=== PATIENT | male | born 1995 | race Caucasian/White ===

== ENCOUNTER 2025-06-04 08:24 | Emergency (ER) | payer OTHER, SELFPAY ==
[2025-06-04 08:25] VITALS: BP 153/82; PULSE 79; RESP 16; TEMP 36.4; O2SAT 98
--- NOTE | 2025-06-04 11:15 | PC.NURSE ---
Pt both eyes 20/13 for visual accuity.
--- NOTE | 2025-06-04 11:28 | ED.EYEPROB ---
HPI - Eye Problem General Chief complaint: Eye Problems Stated complaint: eye issue Time Seen by Provider: 06/04/25 10:41 Source: patient Mode of arrival: ambulatory Limitations: no limitations History of Present Illness HPI Narrative: This is a 29-year-old male that presents to the emergency department for left eye discomfort. Reports he was scratched by his mother's cat. Reports pain, redness, tearing. He does not wear contacts or glasses. Related Data Allergies Allergy/AdvReac Type Severity Reaction Status Date / Time No Known Allergies Allergy Verified 06/04/25 10:42 Review of Systems Review of Systems: All systems reviewed & are unremarkable except as noted in HPI and below Exam Narrative: GENERAL: Well-appearing, well-nourished, and in no acute distress. HEAD: Normocephalic, atraumatic. EYES: PERRLA and EOMI. Left eye conjunctival injection, tearing. Moderate sized corneal abrasion at the 6 o clock position. Eye pressure 19 on the right, 13 on the left. Visual acuity 20/25 on the left, 20/20 in the right EXTREMITIES: Normal range of motion. No edema. SKIN: Warm, dry, no rash. NEURO: No focal deficits. Alert and oriented x3. PSYCH: Normal mood and affect Course Vital Signs Vital signs: Vital Signs Temperature 97.5 F L 06/04/25 08:25 Pulse Rate 79 06/04/25 08:25 Respiratory Rate 16 06/04/25 08:25 Blood Pressure 153/82 H 06/04/25 08:25 Pulse Oximetry 98 06/04/25 08:25 Oxygen Delivery Room Air 06/04/25 08:25 Temperature 97.5 F L 06/04/25 08:25 Pulse Rate 79 06/04/25 08:25 Respiratory Rate 16 06/04/25 08:25 Blood Pressure 153/82 H 06/04/25 08:25 Pulse Oximetry 98 06/04/25 08:25 Oxygen Delivery Room Air 06/04/25 08:25 MDM - Eye Problem MDM Narrative Medical decision making narrative: Patient presents to the emergency department for a corneal abrasion. No concerning visual changes. Patient will be started on topical antibiotics. Instructed to follow-up with ophthalmology Differential Diagnosis Differential diagnosis: Likely corneal abrasion and conjunctivitis Critical Care Time Critical Care Time Critical Care Time: No Discharge Plan Discharge Clinical Impression: Corneal abrasion Qualifiers: Encounter type: initial encounter Laterality: left Qualified Code(s): S05.02XA - Injury of conjunctiva and corneal abrasion without foreign body, left eye, initial encounter Patient Disposition: Home Condition: Stable Instructions: Antibiotic Form, Corneal Abrasion (ED) Additional Instructions: Return to the Emergency Department experience fever, vision changes, redness and swelling of your eye, or any other symptoms that are concerning to you Apply antibiotic ointment as prescribed. Tylenol or ibuprofen as needed for pain. Prescribed pain medication as needed Follow up with ophthalomogy. [facility] vision centers if needed Patient Language: Divehi Prescriptions: New erythromycin 5 mg/gram (0.5 %) ointment 0.5 inch EACH EYE QID 5 Days Qty: 3.5 0RF hydrocodone-acetaminophen 5-325 mg tablet 1 tablet PO Q6H PRN (Reason: pain) Qty: 10 0RF Follow-up/Referrals: [facility] [Primary Care Provider, Medical]
== END 2025-06-04 12:13 | disposition home or self-care (01) ==
PROVIDERS: Emergency Provider Physician Assistant
DX: S05.02XA Injury of conjunctiva and corneal abrasion without foreign body, left eye, initial encounter (principal); W55.03XA Scratched by cat, initial encounter
CPT/HCPCS: 99283; A9270

== ENCOUNTER 2025-07-21 07:48 | Emergency (ER) | payer OTHER, SELFPAY ==
[2025-07-21 07:57] VITALS: BP 141/100; PULSE 52; RESP 18; TEMP 36.4; O2SAT 99
--- NOTE | 2025-07-21 09:12 | ED_ITS ---
HPI - General Adult General Chief complaint: Eye Problems Stated complaint: left eye swelling Time Seen by Provider: 07/21/25 08:15 History of Present Illness HPI narrative: 29-year-old male present to the emergency department for evaluation for left eye pain. Pain started yesterday. Patient is unsure if he got anything in his eye. Patient does have prior history of a cat scratch to the left eye and was on antibiotics. Patient denies any changes to vision. Patient does have erythema of the left conjunctiva. Patient's tetanus is not up-to-date Related Data Allergies Allergy/AdvReac Type Severity Reaction Status Date / Time No Known Allergies Allergy Verified 07/21/25 07:58 Review of Systems Review of Systems: All systems reviewed & are unremarkable except as noted in HPI and below Exam Narrative: APPEARANCE: Well appearing, no pain, no distress, well-nourished. HEAD: normocephalic, atraumatic. EYES: Injected conjunctiva of left eye, corneal abrasion under pupil NOSE: Normal no drainage RESPIRATORY: Airway patent, respirations nonlabored. Clear to auscultation bilaterally, no rales, rhonchi, wheezing. CARDIOVASCULAR: Regular rate and rhythm without murmurs rubs or gallops. ABDOMINAL: Soft, nontender, nondistended, normal bowel sounds MUSCULOSKELETAL: Moves all extremities. Strength/ROM intact, No edema, No calf tenderness. NEURO: Alert. Cranial nerves II through XII intact. Good gait. Good coordination SKIN: Warm, dry. Normal Color Course Vital Signs Vital signs: Vital Signs Temperature 97.6 F 07/21/25 07:57 Pulse Rate 52 L 07/21/25 07:57 Respiratory Rate 18 07/21/25 07:57 Blood Pressure 141/100 H 07/21/25 07:57 Pulse Oximetry 99 07/21/25 07:57 Oxygen Delivery Room Air 07/21/25 07:57 Temperature 97.6 F 07/21/25 07:57 Pulse Rate 52 L 07/21/25 07:57 Respiratory Rate 18 07/21/25 07:57 Blood Pressure 141/100 H 07/21/25 07:57 Pulse Oximetry 99 07/21/25 07:57 Oxygen Delivery Room Air 07/21/25 07:57 [facility] Narrative Medical decision making narrative: 29-year-old male presenting to the emergency department for evaluation for redness of the left eye. Patient does have a corneal abrasion. Patient's tetanus was updated emergency department. Patient was started on ofloxacin drops. 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 All questions concerns were addressed. Differential Diagnosis Differential Diagnosis: Corneal abrasion, corneal ulcer, periorbital cellulitis, allergic conjunctivitis Discharge Plan Discharge Clinical Impression: Corneal abrasion Patient Disposition: Home Condition: Stable Instructions: Antibiotic Form, Corneal Abrasion (ED) Additional Instructions: Tylenol and ibuprofen for pain control. Ofloxacin as directed for the corneal abrasion. Have close follow-up with Ophthalmology. Patient Language: Hungarian Prescriptions: New ofloxacin 0.3 % drops See Rx Instructions .ROUTE .COMPLEX Qty: 10 0RF Rx Instructions: put 1-2 drps into affected eye(s) every 2-4 h x 2 days, then 1-2 drps 4 times/day days 3-7 No Action erythromycin 5 mg/gram (0.5 %) ointment 0.5 inch EACH EYE QID 5 Days Qty: 3.5 0RF hydrocodone-acetaminophen 5-325 mg tablet 1 tablet PO Q6H PRN (Reason: pain) Qty: 10 0RF Follow-up/Referrals: [employer] Edil Ortiz [Outside] [employer] Edil Mcfadden [Outside] [facility] [Primary Care Provider, Medical]
[2025-07-21] MEDS: TETANUS,DIPHTHERIA,AC PERTUSSIS ADULT (0.5 ML) BOOSTRIX IM (09:25)
[2025-07-21] MEDS: OFLOXACIN 0.3% OPHTH SOLN 5 ML BTL 1 DROP LEFT EYE (09:26)
== END 2025-07-21 09:31 | disposition home or self-care (01) ==
PROVIDERS: Emergency Provider Emergency Medicine
DX: S05.02XA Injury of conjunctiva and corneal abrasion without foreign body, left eye, initial encounter (principal); Z23 Encounter for immunization; X58.XXXA Exposure to other specified factors, initial encounter
CPT/HCPCS: 90471; 90715; 99283; A9270